=== PATIENT | female | born 2000 | race Caucasian/White ===

== ENCOUNTER 2020-02-10 09:23 | Outpatient (REF) | payer MEDICAID, SELFPAY | END 2020-02-10 09:24 | disposition home or self-care (01) | LOC: HO.LAB 09:23 | PROVIDERS: Visit Provider Internal Medicine | DX: Z20.828 Contact with and (suspected) exposure to other viral communicable diseases (principal) | CPT/HCPCS: 87635 ==

== ENCOUNTER 2020-02-15 09:57 | Emergency (ER) | payer OTHER, SELFPAY ==
[2020-02-15 10:11] VITALS: BP 121/72; PULSE 71; RESP 18; TEMP 36.8; O2SAT 100; BMI 20.3
[2020-02-15] MEDS: 0.9 % Sodium Chloride 1,000 ML 999 ML IVCONT (10:25)
--- NOTE | 2020-02-15 10:32 | ED_ITS ---
HPI - Abdominal Pain General Chief Complaint: Abdominal Pain Stated Complaint: abd pain Source: patient Mode of arrival: ambulatory Limitations: no limitations History of Present Illness HPI narrative: patient presents to ED for diffuse abdominal pain that occurred suddenly an hour ago. Patient denies any recent trauma to the abdomen. Patient states no hematuria, dysuria, flank pain, fever, or chills. MD elicited complaint: abdominal pain Location: diffuse Quality: stabbing Related Data Previous Rx's Medication Instructions Recorded famotidine [Pepcid] 20 mg PO BID #20 tab 02/15/20 Allergies Allergy/AdvReac Type Severity Reaction Status Date / Time Egg/Pro Allergy Unknown Uncoded 04/06/14 00:00 eggs Allergy Unknown Uncoded 09/10/13 00:00 Review of Systems Review of Systems Yes all other systems are reviewed and are negative Eyes: Reports as per HPI and Reports no additional eye complaints Reports system reviewed and no additional complaints, except as documented and Reports as per HPI Cardiovascular: Reports as per HPI and Reports no additional cardiovascular complaints Respiratory: Reports as per HPI and Reports no additional respiratory complaints Gastrointestinal: Reports as per HPI, Reports no additional gastrointestinal complaints, Reports abdominal pain, Denies melena, Denies bloating, Denies hem atochezia, Denies tenesmus, Denies change in stool character, Denies coffee ground emesis, Denies constipation and Denies dyspepsia Reports system reviewed and no additional complaints, except as documented and Reports as per HPI Psychiatric: Reports no additional psychiatric complaints and Reports as per HPI Physical Exam Vital Signs: Vital Signs: Vital Signs Temp Pulse Resp BP Pulse Ox 02/15/20 14:26 55 18 111/59 L 100 02/15/20 10:11 98.2 F 71 18 121/72 100 Body Mass Index 20.3 Const: General: cooperative, healthy appearing, comfortable and no acute distress Orientation/consciousness: patient oriented x3 HENMT: Head: Yes normal to inspection Eyes: General: appearance normal, both eyes and all related structures Neck: Neck: Yes normal visual inspection, Yes full ROM, Yes no lymphadenopathy, Yes no meningeal signs, No positive Brudzinski's sign and No p ositive Kernig's sign Chest: Chest palpation & inspection: normal inspection of the chest and normal palpation of entire chest wall Resp: Effort & Inspection: normal respiratory effort, able to speak in complete sentences, no audible wheezes, no cough, no grunting, not labored, no nasal flaring, no respiratory distress, no stridor and not tachypneic Cardio: Jugular venous distension: no JVD Rhythm: regular rhythm Heart sounds: S1 normal heart sound present and S2 normal heart sound present GI: Inspection: Yes normal to inspection Palpation (GI): Tenderness to palpation present (GI) ( Diffuse tenderness) and Guarding due to palpation present (GI) ( diffuse) : General: No CVA tenderness and Yes no CVA tenderness Back/Spine/Pelvis: Back: no CVA tenderness, No CVA tenderness and No back tenderness Skin: General skin exam: no rashes or lesions noted Neuro: General: patient oriented x3, no meningeal signs and CN's II-XI intact bilaterally Cranial nerves: Yes CN's II-XII intact bilaterally Extrem: General: Yes normal to inspection Course Course Course Narrative: patient abdomen is very tender. Will do labs including to rule out ectopic . If is negative will send patient for CT scan to rule out any surgical etiology. Patient given Pepcid and IV fluids. Once come back negative we will order pain meds. Reevaluation(s) Reevaluation #1: patient no longer has any abdominal pain. CT scan results came back and appendix cannot be visualized. Radiologist recommends appendix ultrasound. Ultrasound ultrasound showed small amount of pelvic free fluid and radiology also recommended pelvic ultrasound. Awaiting results of appendix ultrasound. patient is non-tender and bening on palpation. Time: 14:20 Reevaluation #2: Patient abdomen re-evaluated is nontender and benign on palpation. Ultrasound of abdomen states possible acute appendicitis although very unlikely due to not having inflamattion near appendix and negative for any tenderness or hyperrmia as per ultrasound. Patient presently does not have any abdominal pain. Will call surgeon on-call Time: 15:40 Reevaluation #3: spoke with Dr. Olivo of surgery. She was informed of patient's history, physical exam, and diagnostics including readings of CAT scanned and ultrasound. She states patient could be safely discharged and educated on signs of appendicitis and told to return to ED immediately if she has them. Patient presently does not have any abdominal pain and agrees the plan. Patient states she will come back if symptoms worsen. Time: 15:46 Additional Reevaluation(s): Due to patient's abdominal pain resolving after receiving Pepcid, GERD could be a differential. MDM - Abdominal Pain MDM Narrative Medical decision making narrative: Abdominal pain. GERD. Lab Data Result diagrams: 02/15/20 10:02/15/20 10:23 Labs: Lab Results 02/15/20 02/15/20 02/15/20 Range/Units 10: 10: 10:23 WBC 6.5 (4.8-10.8) X10*3/uL RBC 4.82 (4.20-5.50) X10*6/uL Hgb 13.1 (12.0-16.0) g/dl Hct 40.7 (37-47) % MCV 84.4 (80-98) fL MCH 27.2 (27.0-33.0) pg MCHC 32.2 (31.0-35.0) g/dl RDW 13.2 (11.0-16.0) % Plt Count 315 (160-400) X10*3/uL MPV 10.2 (9.4-12.3) fL Immature Gran % (Auto) 0.2 (0.0-0.4) % Neut % (Auto) 55.3 (45-73) % Lymph % (Auto) 27.4 (20-40) % [place] % (Auto) 7.3 (2-11) % Eos % (Auto) 9.0 H (0-4) % Baso % (Auto) 0.8 (0-2) % Lymph # (Auto) 1.8 (1.2-4.9) X10*3/uL [place] # (Auto) 0.5 (0.1-1.2) X10*3/uL Eos # (Auto) 0.6 H (0.0-0.4) X10*3/uL Baso # (Auto) 0.1 (0.0-0.2) X10*3/uL Abs Immat Gran (auto) 0.01 (0.00-0.03) X10*3/uL Absolute Neuts (auto) 3.6 (2.0-8.3) X10*3/uL Absolute Nucleated RBC 0.000 (0.0-0.012) X10*3/uL Nucleated RBC % (auto) 0.0 (0.0-0.2) /100WBC PT 13.4 H (10.8-13.0) SEC INR 1.1 (0.9-1.1) APTT 34.7 (24.1-38.0) SEC Sodium 140 (135-145) mmol/L Potassium 4.0 (3.3-5.1) mmol/l Chloride 106 (96-108) mmol/L Carbon Dioxide 27 (22-29) mmol/L Anion Gap 11 L (12-20) BUN 10 (9-16) mg/dL Creatinine 0.76 (0.5-1.4) mg/dL Estim Creat Clear Calc 97.2 Estimated GFR > 60 Random Glucose 87 (60-115) mg/dL Calcium 9.8 (8.4-10.2) mg/dL Total Bilirubin 1.0 (0.0-1.0) mg/dL Direct Bilirubin 0.5 (0.0-0.5) mg/dL AST 18 (5-31) U/L ALT 12 (0-31) U/L Alkaline Phosphatase 60 (39-117) U/L Total Protein 7.2 (6.5-8.0) g/dL Albumin 4.7 (3.5-5.0) g/dL Lipase 11 (8-78) U/L Beta HCG, Quant < 2 mIU/mL Urine Color Urine Appearance Urine pH (5.0-8.0) Ur Specific [place] (1.005-1.025) Urine Protein (NEG-TRACE) MG/DL Urine Glucose (UA) (NEG) MG/DL Urine Ketones (NEG) MG/DL Urine Blood (NEG) Urine Nitrite (NEG) Ur Leukocyte Esterase (NEG) 02/15/20 Range/Units 11:23 WBC (4.8-10.8) X10*3/uL RBC (4.20-5.50) X10*6/uL Hgb (12.0-16.0) g/dl Hct (37-47) % MCV (80-98) fL MCH (27.0-33.0) pg MCHC (31.0-35.0) g/dl RDW (11.0-16.0) % Plt Count (160-400) X10*3/uL MPV (9.4-12.3) fL Immature Gran % (Auto) (0.0-0.4) % Neut % (Auto) (45-73) % Lymph % (Auto) (20-40) % [place] % (Auto) (2-11) % Eos % (Auto) (0-4) % Baso % (Auto) (0-2) % Lymph # (Auto) (1.2-4.9) X10*3/uL [place] # (Auto) (0.1-1.2) X10*3/uL Eos # (Auto) (0.0-0.4) X10*3/uL Baso # (Auto) (0.0-0.2) X10*3/uL Abs Immat Gran (auto) (0.00-0.03) X10*3/uL Absolute Neuts (auto) (2.0-8.3) X10*3/uL Absolute Nucleated RBC (0.0-0.012) X10*3/uL Nucleated RBC % (auto) (0.0-0.2) /100WBC PT (10.8-13.0) SEC INR (0.9-1.1) APTT (24.1-38.0) SEC Sodium (135-145) mmol/L Potassium (3.3-5.1) mmol/l Chloride (96-108) mmol/L Carbon Dioxide (22-29) mmol/L Anion Gap (12-20) BUN (9-16) mg/dL Creatinine (0.5-1.4) mg/dL Estim Creat Clear Calc Estimated GFR Random Glucose (60-115) mg/dL Calcium (8.4-10.2) mg/dL Total Bilirubin (0.0-1.0) mg/dL Direct Bilirubin (0.0-0.5) mg/dL AST (5-31) U/L ALT (0-31) U/L Alkaline Phosphatase (39-117) U/L Total Protein (6.5-8.0) g/dL Albumin (3.5-5.0) g/dL Lipase (8-78) U/L Beta HCG, Quant mIU/mL Urine Color YELLOW Urine Appearance CLEAR Urine pH 6.0 (5.0-8.0) Ur Specific [place] 1.020 (1.005-1.025) Urine Protein NEG (NEG-TRACE) MG/DL Urine Glucose (UA) NEG (NEG) MG/DL Urine Ketones NEG (NEG) MG/DL Urine Blood NEG (NEG) Urine Nitrite NEG (NEG) Ur Leukocyte Esterase NEG (NEG) Discharge Plan Discharge Clinical Impression: Abdominal pain Qualifiers: Abdominal location: generalized Qualified Code(s): R10.84 - Generalized abdominal pain GERD (gastroesophageal reflux disease) Qualifiers: Esophagitis presence: without esophagitis Qualified Code(s): K21.9 - Gastro- esophageal reflux disease without esophagitis Patient Disposition: Home, Self-Care Instructions: Gastroesophageal Reflux Disease (ED), Abdominal Pain (ED) Additional Instructions: Return to the ED immediately for worsening abdominal pain, right lower quadrant pain, decreased appetite, nausea, vomiting, flank pain, fever, chills, dysuria, hematuria, vaginal bleeding, vaginal discharge, or any other concerning symptoms. Please follow up with your PCP Prescriptions: New famotidine [Pepcid] 20 mg tablet 20 mg PO BID Qty: 20 RF: 0 Stand Alone Forms: Work/School Release Discharge Date/Time: 02/15/20 16:15 Print Language: Frisian [facility] Past Medical History Medical History Asthma No known health problems Social History Social History Alcohol intake: unknown Smoking Status: Never smoker Use of substances other than those prescribed or required for medical reasons: No Advance Directives: No Advance Directives Information Provided: No
[2020-02-15] MEDS: Famotidine/PF 20 MG/2 ML VIAL IVPUSH (10:36)
[2020-02-15 10:40] LABS: MANUAL DIFF FLAG NO
[2020-02-15 10:48] LABS: Basophils Absolute Auto 0.1 X10*3/uL (0.0-0.2); Basophils Percent Auto 0.8 % (0-2); Eosinophils Absolute Auto 0.6 X10*3/uL (0.0-0.4); Hematocrit 40.7 % (37-47); Hemoglobin 13.1 g/dl (12.0-16.0); Imm Gran Abs Auto 0.01 X10*3/uL (0.00-0.03); Imm Gran Pct Auto 0.2 % (0.0-0.4); Lymphocytes Absolute Auto 1.8 X10*3/uL (1.2-4.9); Lymphocytes Percent Auto 27.4 % (20-40); Mean Corpuscular HGB Conc 32.2 g/dl (31.0-35.0); Mean Corpuscular Hemoglobin 27.2 pg (27.0-33.0); Mean Corpuscular Volume 84.4 fL (80-98); Mean Platelet Volume 10.2 fL (9.4-12.3); Monocytes Absolute Auto 0.5 X10*3/uL (0.1-1.2); Monocytes Percent Auto 7.3 % (2-11); Neutrophils Absolute Auto 3.6 X10*3/uL (2.0-8.3); Neutrophils Percent Auto 55.3 % (45-73); Platelet Count 315 X10*3/uL (160-400); Red Blood Count 4.82 X10*6/uL (4.20-5.50); Red Cell Distribution Width 13.2 % (11.0-16.0); White Blood Count 6.5 X10*3/uL (4.8-10.8)
[2020-02-15 10:52] LABS: INTERNATIONAL NORM RATIO 1.1 (0.9-1.1); Prothrombin Time 13.4 SEC (10.8-13.0)
[2020-02-15 10:54] LABS: Partial Thromboplastin Time 34.7 SEC (24.1-38.0)
[2020-02-15 11:06] LABS: Alanine Aminotransferase 12 U/L (0-31); Albumin Level 4.7 g/dL (3.5-5.0); Alkaline Phosphatase 60 U/L (39-117); Anion Gap 11 (12-20); Aspartate Amino Transferase 18 U/L (5-31); Bilirubin Direct 0.5 mg/dL (0.0-0.5); Blood Urea Nitrogen 10 mg/dL (9-16); Calcium 9.8 mg/dL (8.4-10.2); Carbon Dioxide 27 mmol/L (22-29); Chloride 106 mmol/L (96-108); Creatinine Clr Calc Pharmacy 97.2; Estimated Glomerular Filt Rate > 60; Glucose Random 87 mg/dL (60-115); Lipase 11 U/L (8-78); Sodium 140 mmol/L (135-145); Total Protein 7.2 g/dL (6.5-8.0)
[2020-02-15 11:12] LABS: HCG Quantitative < 2 mIU/mL
--- NOTE | 2020-02-15 11:22 | CT_ITS ---
EXAMINATION: CT ABDOMEN AND PELVIS WITH CONTRAST CLINICAL INFORMATION: Abdominal pain COMPARISON: None TECHNIQUE: Multidetector volumetric images were obtained from the superior aspect of the liver through the pubic symphysis following administration 85 mL of Omnipaque 350 intravenous contrast. Sagittal and coronal reformatted images were obtained on the technologist's workstation. Oral contrast: No This CT examination was performed using dose optimization techniques as appropriate, variously including the following: *Automated exposure control *Adjustment of mA and/or kV according to patient size (this includes techniques or standardized protocols for targeted exams where dose is matched to indication/reason for exam; i.e. extremities or head) *Use of iterative reconstruction technique DLP: 269 mGy-cm FINDINGS: LUNG BASES: The visualized lung bases are unremarkable. No pleural or pericardial effusion. LIVER, GALLBLADDER, AND BILIARY TREE: The liver is normal in size, shape, and attenuation. No focal hepatic lesion or biliary ductal dilatation is present. The gallbladder is unremarkable with no evidence of radiopaque gallstones, gallbladder wall thickening, or obvious pericholecystic inflammatory changes. PANCREAS: Unremarkable. SPLEEN: Unremarkable. ADRENAL GLANDS: Unremarkable. KIDNEYS AND URETERS: The kidneys are normal in size, shape, and attenuation. No hydronephrosis, hydroureter, or calculi seen. No perinephric stranding. BLADDER: Unremarkable. GASTROINTESTINAL TRACT: No dilated loops of large or small bowel are evident. No free abdominal air. There is a small amount of free fluid seen within the pelvis. With lack of intra-abdominal fat the evaluation of bowel loops within the pelvis is difficult with no oral contrast. The appendix is not identified with the cecum lying deep within the pelvis. ABDOMINAL WALL: No significant hernia is appreciated. LYMPH NODES: No lymphadenopathy appreciated. VASCULAR: Unremarkable. PELVIC VISCERA: Limited evaluation. Small amount of free fluid. OSSEOUS STRUCTURES: Unremarkable. IMPRESSION: No evidence of ileus or obstruction. Small amount of free pelvic fluid present with limited evaluation of pelvic structures as described. For better evaluation of the adnexa pelvic ultrasound may be of help. Compression ultrasound of the appendix may be of help as well since the appendix is not definitely identified with the cecum lying deep within the pelvis adjacent to multiple other loops of bowel without intervening fat.
[2020-02-15 11:30] LABS: Glucose Urine UA NEG (NEG); Leukocyte Esterase Urine NEG (NEG); Nitrite Urine NEG (NEG); Urine Blood NEG (NEG); Urine Ketones NEG (NEG); Urine Protein NEG (NEG-TRACE)
[2020-02-15 11:33] LABS: Appearance Urine CLEAR; Color Urine YELLOW
[2020-02-15] MEDS: iohexoL 350 MG/ML 100 ML INFUS..BTL IV (12:14)
--- NOTE | 2020-02-15 12:57 | US_ITS ---
EXAMINATION: US PELVIS COMPLETE US TRANSVAGINAL US PELVIC OVARIAN DOPPLER CLINICAL INFORMATION: Abdominal pain. Evaluate for ovarian torsion or abscess. Patient with Nexplanon, LMP August 2018 COMPARISON: CT abdomen and pelvis of 02/15/2020 TECHNIQUE: Real-time scanning of the pelvis is acquired via transabdominal and transvaginal approach. A dedicated color and spectral Doppler evaluation of the ovaries was obtained. FINDINGS: An anteverted uterus is normal in size measuring 6.3 x 1.8 x 3.3 cm in length, AP and transverse dimensions respectively. Endometrial stripe thickness is 0.3 cm. Myometrial echotexture is homogeneous. No focal uterine mass. The ovaries are normal in appearance containing multiple follicles. Bilateral symmetrical and normal-appearing intraovarian arterial and venous blood flow is documented on spectral Doppler evaluation. Right Ovary: 3.7 x 2.1 x 2.8 cm, volume 11.4 mL Left Ovary: 3.6 x 2.1 x 2.3 cm, volume 9.1 mL Small amount of free fluid is noted in the pelvis and bilateral adnexa. No adnexal mass is noted. IMPRESSION: 1. No sonographic evidence of active ovarian torsion at this time. Normal sonographic appearance of the ovaries. No definite adnexal mass is noted. 2. Small free fluid in the pelvis in the bilateral adnexal region and cul-de-sac, probably physiologic.
--- NOTE | 2020-02-15 12:57 | US_ITS ---
EXAMINATION: RIGHT LOWER QUADRANT COMPRESSION ULTRASOUND STUDY FOR APPENDIX CLINICAL INFORMATION: Abdominal pain. Question appendicitis. COMPARISON: CT scan of February 15, 2020 TECHNIQUE: Right lower quadrant compression ultrasound FINDINGS: Compression ultrasound in the right lower quadrant demonstrates a blind-ending tubular structure that does not peristalse measuring approximately 3.6 cm long and 8 x 7 mm in diameter. There is only limited compressibility to the tubular structure however patient fell no tenderness to palpation overlying the region and there is no free fluid seen around this structure. Doppler evaluation did not demonstrate any hyperemia at all involving this structure. IMPRESSION: Compression ultrasound right lower quadrant demonstrates a blind-ending tubular structure with limited compressibility which if patient was symptomatic could possibly represent acute appendicitis however without adjacent inflammatory change and hyperemia and with patient not having any tenderness to palpation overlying this region this likely does not represent acute appendicitis.
[2020-02-15 14:26] VITALS: BP 111/59; PULSE 55; RESP 18; O2SAT 100
== END 2020-02-15 16:15 | disposition home or self-care (01) ==
PROVIDERS: Physician Assistant; Emergency Provider Emergency Medicine
DX: K21.9 Gastro-esophageal reflux disease without esophagitis (principal)
CPT/HCPCS: 36415; 74177; 76705; 76830; 76856; 80053; 80076; 81003; 82248; 83690; 84702; 85025; 85610; 85730; 93975; 96361; 96374; 99284

== ENCOUNTER 2020-03-04 16:48 | Outpatient (REF) | payer OTHER, SELFPAY | END 2020-03-04 16:49 | disposition home or self-care (01) | LOC: HO.LAB 16:48 | PROVIDERS: Visit Provider Internal Medicine | DX: Z20.828 Contact with and (suspected) exposure to other viral communicable diseases (principal) | CPT/HCPCS: C9803; U0003 ==

== ENCOUNTER → 2020-04-06 12:20 | Outpatient (BNVA) | payer OTHER, SELFPAY | PROVIDERS: Visit Provider Advanced Practice Midwife | DX: Z76.89 Persons encountering health services in other specified circumstances (principal) ==

== ENCOUNTER 2020-04-13 13:13 | Outpatient (REF) | payer OTHER, SELFPAY | END 2020-04-13 13:14 | disposition home or self-care (01) | LOC: HO.LAB 13:13 | PROVIDERS: Visit Provider Internal Medicine | DX: Z20.828 Contact with and (suspected) exposure to other viral communicable diseases (principal) | CPT/HCPCS: C9803; U0003 ==

== ENCOUNTER 2020-04-21 08:59 | Outpatient (REF) | payer OTHER, SELFPAY | END 2020-04-21 09:00 | disposition home or self-care (01) | LOC: HO.LAB 08:59 | PROVIDERS: Visit Provider Internal Medicine | DX: Z20.828 Contact with and (suspected) exposure to other viral communicable diseases (principal) | CPT/HCPCS: C9803; U0003 ==

== ENCOUNTER → 2020-07-07 13:56 | Outpatient (BNVA) | payer OTHER, SELFPAY | PROVIDERS: Visit Provider Advanced Practice Midwife ==

== ENCOUNTER 2020-08-04 14:53 | Outpatient (REF) | payer OTHER, SELFPAY ==
[2020-08-04 16:16] LABS: COVID-19 Test Negative (Negative)
== END 2020-08-04 14:54 | disposition home or self-care (01) ==
LOC: HO.LAB 14:53
PROVIDERS: Visit Provider Internal Medicine
DX: Z20.822 Contact with and (suspected) exposure to COVID-19 (principal)
CPT/HCPCS: 36415; 87635; C9803

== ENCOUNTER 2020-09-28 08:53 | Outpatient (REF) | payer OTHER, SELFPAY ==
[2020-09-28 09:15] LABS: COVID-19 Test Negative (Negative)
== END 2020-09-28 08:54 | disposition home or self-care (01) ==
LOC: HO.LAB 08:53
PROVIDERS: Visit Provider Internal Medicine
DX: Z20.822 Contact with and (suspected) exposure to COVID-19 (principal)
CPT/HCPCS: 36415; 87635; C9803

== ENCOUNTER → 2021-02-14 10:18 | Outpatient (BNVA) | payer OTHER, SELFPAY | PROVIDERS: Visit Provider Advanced Practice Midwife | DX: Z30.46 Encounter for surveillance of implantable subdermal contraceptive (principal); F41.8 Other specified anxiety disorders; Z91.012 Allergy to eggs; Z32.02 Encounter for pregnancy test, result negative | CPT/HCPCS: 11982; 81025 ==

== ENCOUNTER → 2021-03-11 13:43 | Outpatient (BNVA) | payer OTHER, SELFPAY | PROVIDERS: Visit Provider Advanced Practice Midwife | DX: Z30.017 Encounter for initial prescription of implantable subdermal contraceptive (principal) | CPT/HCPCS: 11981; 81025 ==

== ENCOUNTER 2022-05-15 17:43 | Emergency (ER) | payer OTHER, SELFPAY ==
[2022-05-15 17:51] VITALS: BP 139/79; PULSE 79; RESP 18; TEMP 36.9; O2SAT 18; BMI 23.7
--- NOTE | 2022-05-15 17:52 | ECG_ITS ---
Test Reason : CLEARANCE Blood Pressure : / mmHG Vent. Rate : 064 BPM Atrial Rate : 064 BPM P-R Int : 164 ms QRS Dur : 092 ms QT Int : 388 ms P-R-T Axes : 058 085 047 degrees QTc Int : 400 ms Normal sinus rhythm with sinus arrhythmia Incomplete right bundle branch block Borderline ECG No previous ECGs available Referred By: Jose R Katz Electronically Signed By:YAS ALVARADO MD
--- NOTE | 2022-05-15 17:54 | ED.PSYCH ---
HPI - Psych General Chief Complaint: Psychiatric Symptoms <MARY ANNE Dickens - Last Filed: 05/16/22 11:30> Stated Complaint: medically cleared <MARY ANNE Dickens - Last Filed: 05/16/22 11:30> Time Seen by Provider: 05/15/22 18:10 <MARY ANNE Dickens - Last Filed: 05/16/22 11:30> Source: patient <Veramary jane Michelle OLVIN Deluca - Last Filed: 05/16/22 01:04> Mode of arrival: ambulatory <Vera Deluca CNP - Last Filed: 05/16/22 01:04> Limitations: no limitations <Vera Deluca CNP - Last Filed: 05/16/22 01:04> History of Present Illness HPI Narrative: Patient is a 21-year-old female who presents to the emergency department for evaluation of suicidal ideations. She expresses that she has been having increased depression recently. Provides no specific plan. She states that she has not wanted to go to work, has poor appetite, not interested in self hygiene, or interacting with family/ friends. She reports 3 days ago she attempted to overdose on Tylenol, she is not certain how much Tylenol she took, she was not evaluated at the hospital after this. Denies any homicidal ideations. She is currently without any reports of fever, chills, chest pain, shortness of breath, nausea, vomiting, abdominal pain, dysuria, urinary frequency. <Vera Deluca CNP - Last Filed: 05/16/22 01:04> Related Data Home Medications: Home Medications Medication Instructions Recorded Confirmed albuterol sulfate 90 mcg/actuation 1 puff inhalation Q6H PRN wheezing 05/16/22 05/16/22 aerosol inhaler (ProAir HFA) valacyclovir 500 mg tablet 1 tab PO DAILY 05/16/22 05/16/22 <MARY ANNE Dickens - Last Filed: 05/16/22 11:30> Allergies/Adverse Reactions: Allergies Allergy/AdvReac Type Severity Reaction Status Date / Time eggs Allergy Unknown Unknown Uncoded 02/14/21 10:21 <MARY ANNE Dickens Last Filed: 05/16/22 11:30> Review of Systems Review of Systems: Constitutional : No Fever, No Chills ENT/Mouth : No Ear Pain, No Nasal Congestion, No sore throat Eyes: No Eye Pain, No Swelling, No Redness Cardiovascular : No Chest Pain, No SOB Respiratory : No Cough, No Sputum, No Dyspnea Gastrointestinal : No Nausea, No Vomiting, No Diarrhea, No Hematochezia, No Melena Genitourinary : No Dysuria, No Urinary Frequency, No Hematuria Musculoskeletal : No Myalgias Skin : No Skin Lesions, No rash Neuro : No Weakness, No Numbness, No Paresthesias, No Dizziness, No Headache Psych : no Anxiety, positive Depression, positive SI, no HI Heme/Lymph: No Lymphadenopathy Endocrine : No Polyuria, No Polydipsia <Vera Deluca CNP - Last Filed: 05/16/22 01:04> Yes all other systems are reviewed and are negative <Vera Deluca CNP - Last Filed: 05/16/22 01:04> PMFSH Past Medical History Attestation statement: The following information was validated with the patient. <Vera Deluca CNP - Last Filed: 05/16/22 01:04> Source: old records reviewed <Vera Deluca CNP - Last Filed: 05/16/22 01:04> Medical History: Medical History Asthma Depression with anxiety No known health problems <MARY ANNE Dickens - Last Filed: 05/16/22 11:30> Social History Social History: Social History Alcohol intake: unknown Advance Directives: No Advance Directives Information Provided: No Healthcare Proxy: No Guardian: No <MARY ANNE Dickens - Last Filed: 05/16/22 11:30> Physical Exam Vital Signs: Vital Signs: Last Vital Signs Temp 98.7 F 05/16/22 09:40 Pulse 102 H 05/16/22 09:40 Resp 16 05/16/22 09:40 BP 123/67 05/16/22 09:40 Pulse Ox 99 05/16/22 09:40 O2 Del Method 05/16/22 09:40 BMI result Body Mass Index 23.7 <MARY ANNE Dickens - Last Filed: 05/16/22 11:30> Vital Signs: Last Vital Signs Temp 98.7 F 05/16/22 09:40 Pulse 102 H 05/16/22 09:40 Resp 16 05/16/22 09:40 BP 123/67 05/16/22 09:40 Pulse Ox 99 05/16/22 09:40 O2 Del Method 05/16/22 09:40 BMI result Body Mass Index 23.7 <Vera Deluca CNP - Last Filed: 05/16/22 01:04> Vital Signs: Last Vital Signs Temp 98.7 F 05/16/22 09:40 Pulse 102 H 05/16/22 09:40 Resp 16 05/16/22 09:40 BP 123/67 05/16/22 09:40 Pulse Ox 99 05/16/22 09:40 O2 Del Method 05/16/22 09:40 BMI result Body Mass Index 23.7 <Scott Segovia MD - Last Filed: 05/16/22 07:09> Appearance: Alert.?Oriented to person, place and time. No acute distress.?Normal affect. Eyes: Pupils equal, round and reactive to light.? ENT: Pharynx normal.?? Neck: Normal inspection.? Neck supple.?? CVS: Heart sounds normal. Normal heart rate and rhythm.? Pulses normal.?? Respiratory: No respiratory distress.? Lung sounds clear to auscultation bilaterally?? Abdomen: Soft and non-tender. Normoactive bowel sounds. No pulsatile mass.?? Skin: Skin warm and dry.? Normal skin color.? Normal skin turgor.?? Extremities: No lower extremity edema.? No calf ttp? Neuro: Moves all extremities spontaneously. Sensation intact bilaterally. CN II-XII intact. No focal neuro deficits. Ambulates with normal steady gait. <Vera Deluca CNP - Last Filed: 05/16/22 01:04> Course Course Course Narrative: RME: 21 yold female depressed with SI ideation and not interested in washing, eating, or going to work. patient states this past sunday she tried to overdose on tyelnol but did not come to the hospital for evaluation. patient presently has no SI plan. <MARY ANNE Dickens - Last Filed: 05/16/22 11:30> Reevaluation(s) Reevaluation #1: CBC is overall unremarkable. CMP is overall unremarkable, liver function tests are within normal limits. Salicylate and acetaminophen levels within normal limits. Urine toxicology positive for marijuana. Patient was evaluated by care team, patient with multiple changes to her story, reporting SI and denying SI, denying her initially reported overdose attempt on acetaminophen. Recommendations for inpatient bed search, she is placed on a Section 12. patient placed in physician observation, the reason for observation being she requires additional time for inpatient bed search to pursue. She is calm and cooperative, no apparent distress. <Vera Deluca CNP - Last Filed: 05/16/22 01:04> Reevaluation #2: Bed search continue,pt is inpatient level of care ,hemodinamically stable,no event overnight <Scott Segovia MD - Last Filed: 05/16/22 07:09> Time: 07:09 <Scott Segovia MD - Last Filed: 05/16/22 07:09> Medications Administered Discontinued Medications Generic Name Dose Route Start Last Admin Trade Name Freq PRN Reason Stop Dose Admin Lorazepam 2 mg 05/15/22 22:46 05/15/22 22:55 Lorazepam 1 Mg Tablet PO 05/15/22 22:47 2 mg ONCE ONE Administration <MARY ANNE Dickens - Last Filed: 05/16/22 11:30> Medications Administered Discontinued Medications Generic Name Dose Route Start Last Admin Trade Name Freq PRN Reason Stop Dose Admin Lorazepam 2 mg 05/15/22 22:46 05/15/22 22:55 Lorazepam 1 Mg Tablet PO 05/15/22 22:47 2 mg ONCE ONE Administration <Vera Deluca CNP - Last Filed: 05/16/22 01:04> Medications Administered Discontinued Medications Generic Name Dose Route Start Last Admin Trade Name Freq PRN Reason Stop Dose Admin Lorazepam 2 mg 05/15/22 22:46 05/15/22 22:55 Lorazepam 1 Mg Tablet PO 05/15/22 22:47 2 mg ONCE ONE Administration <Scott Segovia MD - Last Filed: 05/16/22 07:09> Medical Decision Making Medical Decision Making MDM Narrative: Patient is a 21-year-old female past medical history of depression presenting to emergency department for evaluation of suicidal ideations. Vague SI without any specific plan. Reports attempted Tylenol overdose 3 days ago, for which she did not seek medical evaluation. Physical examination is benign. Will obtain labs including CBC, CMP, salicylate and acetaminophen level, ethanol level, urinalysis and urine . Patient is currently in the main emergency department, she is on safety checks with 1:1 observation. once medically clear to be referred to the care team for further evaluation, evaluation of whether inpatient psychiatric services would be required. <Vera Deluca CNP - Last Filed: 05/16/22 01:04> Admission/Observation Consideration of admission/observation: Escalation of care including admission/observation considered ( Physician observation as noted in course) <Vera Deluca CNP - Last Filed: 05/16/22 01:04> Lab Data MDM Lab Attestation statement: I reviewed the patient's lab results. <Vera Deluca CNP - Last Filed: 05/16/22 01:04> Result Diagrams: 05/15/22 18:34 05/15/22 18:34 <MARY ANNE Dickens - Last Filed: 05/16/22 11:30> Labs: Lab Results 05/15/22 05/15/22 05/15/22 Range/Units 18:34 18:34 18:34 WBC 9.3 (4.8-10.8) X10*3/uL RBC 4.84 (4.20-5.50) X10*6/uL Hgb 13.0 (12.0-16.0) g/dl Hct 40.5 (37.0-47.0) % MCV 83.7 (80.0-98.0) fL MCH 26.9 L (27.0-33.0) pg MCHC 32.1 (31.0-35.0) g/dl RDW 13.0 (11.0-16.0) % Plt Count 306 (160-400) X10*3/uL MPV 9.6 (9.4-12.3) fL Immature Gran % (Auto) 0.2 (0.0-0.4) % Neut % (Auto) 67.9 (45-73) % Lymph % (Auto) 22.9 (20-40) % Davison % (Auto) 7.7 (2-11) % Eos % (Auto) 0.9 (0-4) % Baso % (Auto) 0.4 (0-2) % Lymph # (Auto) 2.1 (1.2-4.9) X10*3/uL Davison # (Auto) 0.7 (0.1-1.2) X10*3/uL Eos # (Auto) 0.1 (0.0-0.4) X10*3/uL Baso # (Auto) 0.0 (0.0-0.2) X10*3/uL Abs Immat Gran (auto) 0.02 (0.00-0.03) X10*3/uL Absolute Neuts (auto) 6.3 (2.0-8.3) x10*3/uL Absolute Nucleated RBC 0.000 (0.0-0.012) X10*3/uL Nucleated RBC % (auto) 0.0 (0.0-0.2) /100WBC Sodium 138 (135-145) mmol/L Potassium 3.9 (3.3-5.1) mmol/L Chloride 107 (96-108) mmol/L Carbon Dioxide 20 L (22-29) mmol/L Anion Gap 15 (12-20) BUN 8 L (9-16) mg/dL Creatinine 0.83 (0.5-1.4) mg/dL Estim Creat Clear Calc 87.9 Estimated GFR > 60 Random Glucose 100 (60-115) mg/dL Calcium 9.6 (8.4-10.2) mg/dL Total Bilirubin 0.9 (0.0-1.0) mg/dL AST 19 (5-31) U/L ALT 8 (0-31) U/L Alkaline Phosphatase 59 (39-117) U/L Total Protein 7.3 (6.5-8.0) g/dL Albumin 4.6 (3.5-5.0) g/dL Urine Color Urine Appearance Urine pH (5.0-9.0) Ur Specific [place] (1.005-1.025) Urine Protein (Neg-Trace) mg/dL Urine Glucose (UA) (Negative) mg/dL Urine Ketones (Negative) mg/dL Urine Blood (Negative) Urine Nitrite (Negative) Ur Leukocyte Esterase (Negative) Urine Test (NEGATIVE) Salicylates < 5.0 L (15-30) mg/dL Urine Opiates Screen (Not Detect) Urine Fentanyl Screen (Not Detect) Acetaminophen < 17 (<30) mcg/mL Ur Barbiturates Screen (Not Detect) Ur Phencyclidine Scrn (Not Detect) Ur Amphetamines Screen (Not Detect) U Benzodiazepines Scrn (Not Detect) Urine Cocaine Screen (Not Detect) U Marijuana (THC) Screen (Not Detect) Ethyl Alcohol < 10 mg/dL COVID-19 ([facility]) (Negative) COVID-19 Clin Com 05/15/22 05/15/22 05/15/22 Range/Units 19:05 19:05 19:05 WBC (4.8-10.8) X10*3/uL RBC (4.20-5.50) X10*6/uL Hgb (12.0-16.0) g/dl Hct (37.0-47.0) % MCV (80.0-98.0) fL MCH (27.0-33.0) pg MCHC (31.0-35.0) g/dl RDW (11.0-16.0) % Plt Count (160-400) X10*3/uL MPV (9.4-12.3) fL Immature Gran % (Auto) (0.0-0.4) % Neut % (Auto) (45-73) % Lymph % (Auto) (20-40) % Davison % (Auto) (2-11) % Eos % (Auto) (0-4) % Baso % (Auto) (0-2) % Lymph # (Auto) (1.2-4.9) X10*3/uL Davison # (Auto) (0.1-1.2) X10*3/uL Eos # (Auto) (0.0-0.4) X10*3/uL Baso # (Auto) (0.0-0.2) X10*3/uL Abs Immat Gran (auto) (0.00-0.03) X10*3/uL Absolute Neuts (auto) (2.0-8.3) x10*3/uL Absolute Nucleated RBC (0.0-0.012) X10*3/uL Nucleated RBC % (auto) (0.0-0.2) /100WBC Sodium (135-145) mmol/L Potassium (3.3-5.1) mmol/L Chloride (96-108) mmol/L Carbon Dioxide (22-29) mmol/L Anion Gap (12-20) BUN (9-16) mg/dL Creatinine (0.5-1.4) mg/dL Estim Creat Clear Calc Estimated GFR Random Glucose (60-115) mg/dL Calcium (8.4-10.2) mg/dL Total Bilirubin (0.0-1.0) mg/dL AST (5-31) U/L ALT (0-31) U/L Alkaline Phosphatase (39-117) U/L Total Protein (6.5-8.0) g/dL Albumin (3.5-5.0) g/dL Urine Color Yellow Urine Appearance Clear Urine pH 5.5 (5.0-9.0) Ur Specific [place] 1.015 (1.005-1.025) Urine Protein Negative (Neg-Trace) mg/dL Urine Glucose (UA) Negative (Negative) mg/dL Urine Ketones 40 (Negative) mg/dL Urine Blood Negative (Negative) Urine Nitrite Negative (Negative) Ur Leukocyte Esterase Negative (Negative) Urine Test NEGATIVE (NEGATIVE) Salicylates (15-30) mg/dL Urine Opiates Screen Not Detected (Not Detect) Urine Fentanyl Screen Not Detected (Not Detect) Acetaminophen (<30) mcg/mL Ur Barbiturates Screen Not Detected (Not Detect) Ur Phencyclidine Scrn Not Detected (Not Detect) Ur Amphetamines Screen Not Detected (Not Detect) U Benzodiazepines Scrn Not Detected (Not Detect) Urine Cocaine Screen Not Detected (Not Detect) U Marijuana (THC) Screen POSITIVE H (Not Detect) Ethyl Alcohol mg/dL COVID-19 ([facility]IE) (Negative) COVID-19 Clin Com 05/15/22 Range/Units 19:19 WBC (4.8-10.8) X10*3/uL RBC (4.20-5.50) X10*6/uL Hgb (12.0-16.0) g/dl Hct (37.0-47.0) % MCV (80.0-98.0) fL MCH (27.0-33.0) pg MCHC (31.0-35.0) g/dl RDW (11.0-16.0) % Plt Count (160-400) X10*3/uL MPV (9.4-12.3) fL Immature Gran % (Auto) (0.0-0.4) % Neut % (Auto) (45-73) % Lymph % (Auto) (20-40) % Davison % (Auto) (2-11) % Eos % (Auto) (0-4) % Baso % (Auto) (0-2) % Lymph # (Auto) (1.2-4.9) X10*3/uL [place]ison # (Auto) (0.1-1.2) X10*3/uL Eos # (Auto) (0.0-0.4) X10*3/uL Baso # (Auto) (0.0-0.2) X10*3/uL Abs Immat Gran (auto) (0.00-0.03) X10*3/uL Absolute Neuts (auto) (2.0-8.3) x10*3/uL Absolute Nucleated RBC (0.0-0.012) X10*3/uL Nucleated RBC % (auto) (0.0-0.2) /100WBC Sodium (135-145) mmol/L Potassium (3.3-5.1) mmol/L Chloride (96-108) mmol/L Carbon Dioxide (22-29) mmol/L Anion Gap (12-20) BUN (9-16) mg/dL Creatinine (0.5-1.4) mg/dL Estim Creat Clear Calc Estimated GFR Random Glucose (60-115) mg/dL Calcium (8.4-10.2) mg/dL Total Bilirubin (0.0-1.0) mg/dL AST (5-31) U/L ALT (0-31) U/L Alkaline Phosphatase (39-117) U/L Total Protein (6.5-8.0) g/dL Albumin (3.5-5.0) g/dL Urine Color Urine Appearance Urine pH (5.0-9.0) Ur Specific [place] (1.005-1.025) Urine Protein (Neg-Trace) mg/dL Urine Glucose (UA) (Negative) mg/dL Urine Ketones (Negative) mg/dL Urine Blood (Negative) Urine Nitrite (Negative) Ur Leukocyte Esterase (Negative) Urine Test (NEGATIVE) Salicylates (15-30) mg/dL Urine Opiates Screen (Not Detect) Urine Fentanyl Screen (Not Detect) Acetaminophen (<30) mcg/mL Ur Barbiturates Screen (Not Detect) Ur Phencyclidine Scrn (Not Detect) Ur Amphetamines Screen (Not Detect) U Benzodiazepines Scrn (Not Detect) Urine Cocaine Screen (Not Detect) U Marijuana (THC) Screen (Not Detect) Ethyl Alcohol mg/dL COVID-19 ([facility]) Negative (Negative) COVID-19 Clin Com See Note <MARY ANNE Dickens - Last Filed: 05/16/22 11:30> Lab Results 05/15/22 05/15/22 05/15/22 Range/Units 18:34 18:34 18:34 WBC 9.3 (4.8-10.8) X10*3/uL RBC 4.84 (4.20-5.50) X10*6/uL Hgb 13.0 (12.0-16.0) g/dl Hct 40.5 (37.0-47.0) % MCV 83.7 (80.0-98.0) fL MCH 26.9 L (27.0-33.0) pg MCHC 32.1 (31.0-35.0) g/dl RDW 13.0 (11.0-16.0) % Plt Count 306 (160-400) X10*3/uL MPV 9.6 (9.4-12.3) fL Immature Gran % (Auto) 0.2 (0.0-0.4) % Neut % (Auto) 67.9 (45-73) % Lymph % (Auto) 22.9 (20-40) % Davison % (Auto) 7.7 (2-11) % Eos % (Auto) 0.9 (0-4) % Baso % (Auto) 0.4 (0-2) % Lymph # (Auto) 2.1 (1.2-4.9) X10*3/uL Davison # (Auto) 0.7 (0.1-1.2) X10*3/uL Eos # (Auto) 0.1 (0.0-0.4) X10*3/uL Baso # (Auto) 0.0 (0.0-0.2) X10*3/uL Abs Immat Gran (auto) 0.02 (0.00-0.03) X10*3/uL Absolute Neuts (auto) 6.3 (2.0-8.3) x10*3/uL Absolute Nucleated RBC 0.000 (0.0-0.012) X10*3/uL Nucleated RBC % (auto) 0.0 (0.0-0.2) /100WBC Sodium 138 (135-145) mmol/L Potassium 3.9 (3.3-5.1) mmol/L Chloride 107 (96-108) mmol/L Carbon Dioxide 20 L (22-29) mmol/L Anion Gap 15 (12-20) BUN 8 L (9-16) mg/dL Creatinine 0.83 (0.5-1.4) mg/dL Estim Creat Clear Calc 87.9 Estimated GFR > 60 Random Glucose 100 (60-115) mg/dL Calcium 9.6 (8.4-10.2) mg/dL Total Bilirubin 0.9 (0.0-1.0) mg/dL AST 19 (5-31) U/L ALT 8 (0-31) U/L Alkaline Phosphatase 59 (39-117) U/L Total Protein 7.3 (6.5-8.0) g/dL Albumin 4.6 (3.5-5.0) g/dL Urine Color Urine Appearance Urine pH (5.0-9.0) Ur Specific [place] (1.005-1.025) Urine Protein (Neg-Trace) mg/dL Urine Glucose (UA) (Negative) mg/dL Urine Ketones (Negative) mg/dL Urine Blood (Negative) Urine Nitrite (Negative) Ur Leukocyte Esterase (Negative) Urine Test (NEGATIVE) Salicylates < 5.0 L (15-30) mg/dL Urine Opiates Screen (Not Detect) Urine Fentanyl Screen (Not Detect) Acetaminophen < 17 (<30) mcg/mL Ur Barbiturates Screen (Not Detect) Ur Phencyclidine Scrn (Not Detect) Ur Amphetamines Screen (Not Detect) U Benzodiazepines Scrn (Not Detect) Urine Cocaine Screen (Not Detect) U Marijuana (THC) Screen (Not Detect) Ethyl Alcohol < 10 mg/dL COVID-19 ([facility]) (Negative) COVID-19 Clin Com 05/15/22 05/15/22 05/15/22 Range/Units 19:05 19:05 19:05 WBC (4.8-10.8) X10*3/uL RBC (4.20-5.50) X10*6/uL Hgb (12.0-16.0) g/dl Hct (37.0-47.0) % MCV (80.0-98.0) fL MCH (27.0-33.0) pg MCHC (31.0-35.0) g/dl RDW (11.0-16.0) % Plt Count (160-400) X10*3/uL MPV (9.4-12.3) fL Immature Gran % (Auto) (0.0-0.4) % Neut % (Auto) (45-73) % Lymph % (Auto) (20-40) % [place] % (Auto) (2-11) % Eos % (Auto) (0-4) % Baso % (Auto) (0-2) % Lymph # (Auto) (1.2-4.9) X10*3/uL [place] # (Auto) (0.1-1.2) X10*3/uL Eos # (Auto) (0.0-0.4) X10*3/uL Baso # (Auto) (0.0-0.2) X10*3/uL Abs Immat Gran (auto) (0.00-0.03) X10*3/uL Absolute Neuts (auto) (2.0-8.3) x10*3/uL Absolute Nucleated RBC (0.0-0.012) X10*3/uL Nucleated RBC % (auto) (0.0-0.2) /100WBC Sodium (135-145) mmol/L Potassium (3.3-5.1) mmol/L Chloride (96-108) mmol/L Carbon Dioxide (22-29) mmol/L Anion Gap (12-20) BUN (9-16) mg/dL Creatinine (0.5-1.4) mg/dL Estim Creat Clear Calc Estimated GFR Random Glucose (60-115) mg/dL Calcium (8.4-10.2) mg/dL Total Bilirubin (0.0-1.0) mg/dL AST (5-31) U/L ALT (0-31) U/L Alkaline Phosphatase (39-117) U/L Total Protein (6.5-8.0) g/dL Albumin (3.5-5.0) g/dL Urine Color Yellow Urine Appearance Clear Urine pH 5.5 (5.0-9.0) Ur Specific [place] 1.015 (1.005-1.025) Urine Protein Negative (Neg-Trace) mg/dL Urine Glucose (UA) Negative (Negative) mg/dL Urine Ketones 40 (Negative) mg/dL Urine Blood Negative (Negative) Urine Nitrite Negative (Negative) Ur Leukocyte Esterase Negative (Negative) Urine Test NEGATIVE (NEGATIVE) Salicylates (15-30) mg/dL Urine Opiates Screen Not Detected (Not Detect) Urine Fentanyl Screen Not Detected (Not Detect) Acetaminophen (<30) mcg/mL Ur Barbiturates Screen Not Detected (Not Detect) Ur Phencyclidine Scrn Not Detected (Not Detect) Ur Amphetamines Screen Not Detected (Not Detect) U Benzodiazepines Scrn Not Detected (Not Detect) Urine Cocaine Screen Not Detected (Not Detect) U Marijuana (THC) Screen POSITIVE H (Not Detect) Ethyl Alcohol mg/dL COVID-19 ([facility]) (Negative) COVID-19 Clin Com 05/15/22 Range/Units 19:19 WBC (4.8-10.8) X10*3/uL RBC (4.20-5.50) X10*6/uL Hgb (12.0-16.0) g/dl Hct (37.0-47.0) % MCV (80.0-98.0) fL MCH (27.0-33.0) pg MCHC (31.0-35.0) g/dl RDW (11.0-16.0) % Plt Count (160-400) X10*3/uL MPV (9.4-12.3) fL Immature Gran % (Auto) (0.0-0.4) % Neut % (Auto) (45-73) % Lymph % (Auto) (20-40) % Davison % (Auto) (2-11) % Eos % (Auto) (0-4) % Baso % (Auto) (0-2) % Lymph # (Auto) (1.2-4.9) X10*3/uL [place] # (Auto) (0.1-1.2) X10*3/uL Eos # (Auto) (0.0-0.4) X10*3/uL Baso # (Auto) (0.0-0.2) X10*3/uL Abs Immat Gran (auto) (0.00-0.03) X10*3/uL Absolute Neuts (auto) (2.0-8.3) x10*3/uL Absolute Nucleated RBC (0.0-0.012) X10*3/uL Nucleated RBC % (auto) (0.0-0.2) /100WBC Sodium (135-145) mmol/L Potassium (3.3-5.1) mmol/L Chloride (96-108) mmol/L Carbon Dioxide (22-29) mmol/L Anion Gap (12-20) BUN (9-16) mg/dL Creatinine (0.5-1.4) mg/dL Estim Creat Clear Calc Estimated GFR Random Glucose (60-115) mg/dL Calcium (8.4-10.2) mg/dL Total Bilirubin (0.0-1.0) mg/dL AST (5-31) U/L ALT (0-31) U/L Alkaline Phosphatase (39-117) U/L Total Protein (6.5-8.0) g/dL Albumin (3.5-5.0) g/dL Urine Color Urine Appearance Urine pH (5.0-9.0) Ur Specific [place] (1.005-1.025) Urine Protein (Neg-Trace) mg/dL Urine Glucose (UA) (Negative) mg/dL Urine Ketones (Negative) mg/dL Urine Blood (Negative) Urine Nitrite (Negative) Ur Leukocyte Esterase (Negative) Urine Test (NEGATIVE) Salicylates (15-30) mg/dL Urine Opiates Screen (Not Detect) Urine Fentanyl Screen (Not Detect) Acetaminophen (<30) mcg/mL Ur Barbiturates Screen (Not Detect) Ur Phencyclidine Scrn (Not Detect) Ur Amphetamines Screen (Not Detect) U Benzodiazepines Scrn (Not Detect) Urine Cocaine Screen (Not Detect) U Marijuana (THC) Screen (Not Detect) Ethyl Alcohol mg/dL COVID-19 ([facility]) Negative (Negative) COVID-19 Clin Com See Note <Vera Michelle Yosi, INSPECTOR OF [employer]S AND MEASURES - Last Filed: 05/16/22 01:04> Lab Results 05/15/22 05/15/22 05/15/22 Range/Units 18:34 18:34 18:34 WBC 9.3 (4.8-10.8) X10*3/uL RBC 4.84 (4.20-5.50) X10*6/uL Hgb 13.0 (12.0-16.0) g/dl Hct 40.5 (37.0-47.0) % MCV 83.7 (80.0-98.0) fL MCH 26.9 L (27.0-33.0) pg MCHC 32.1 (31.0-35.0) g/dl RDW 13.0 (11.0-16.0) % Plt Count 306 (160-400) X10*3/uL MPV 9.6 (9.4-12.3) fL Immature Gran % (Auto) 0.2 (0.0-0.4) % Neut % (Auto) 67.9 (45-73) % Lymph % (Auto) 22.9 (20-40) % [place] % (Auto) 7.7 (2-11) % Eos % (Auto) 0.9 (0-4) % Baso % (Auto) 0.4 (0-2) % Lymph # (Auto) 2.1 (1.2-4.9) X10*3/uL [place] # (Auto) 0.7 (0.1-1.2) X10*3/uL Eos # (Auto) 0.1 (0.0-0.4) X10*3/uL Baso # (Auto) 0.0 (0.0-0.2) X10*3/uL Abs Immat Gran (auto) 0.02 (0.00-0.03) X10*3/uL Absolute Neuts (auto) 6.3 (2.0-8.3) x10*3/uL Absolute Nucleated RBC 0.000 (0.0-0.012) X10*3/uL Nucleated RBC % (auto) 0.0 (0.0-0.2) /100WBC Sodium 138 (135-145) mmol/L Potassium 3.9 (3.3-5.1) mmol/L Chloride 107 (96-108) mmol/L Carbon Dioxide 20 L (22-29) mmol/L Anion Gap 15 (12-20) BUN 8 L (9-16) mg/dL Creatinine 0.83 (0.5-1.4) mg/dL Estim Creat Clear Calc 87.9 Estimated GFR > 60 Random Glucose 100 (60-115) mg/dL Calcium 9.6 (8.4-10.2) mg/dL Total Bilirubin 0.9 (0.0-1.0) mg/dL AST 19 (5-31) U/L ALT 8 (0-31) U/L Alkaline Phosphatase 59 (39-117) U/L Total Protein 7.3 (6.5-8.0) g/dL Albumin 4.6 (3.5-5.0) g/dL Urine Color Urine Appearance Urine pH (5.0-9.0) Ur Specific [place] (1.005-1.025) Urine Protein (Neg-Trace) mg/dL Urine Glucose (UA) (Negative) mg/dL Urine Ketones (Negative) mg/dL Urine Blood (Negative) Urine Nitrite (Negative) Ur Leukocyte Esterase (Negative) Urine Test (NEGATIVE) Salicylates < 5.0 L (15-30) mg/dL Urine Opiates Screen (Not Detect) Urine Fentanyl Screen (Not Detect) Acetaminophen < 17 (<30) mcg/mL Ur Barbiturates Screen (Not Detect) Ur Phencyclidine Scrn (Not Detect) Ur Amphetamines Screen (Not Detect) U Benzodiazepines Scrn (Not Detect) Urine Cocaine Screen (Not Detect) U Marijuana (THC) Screen (Not Detect) Ethyl Alcohol < 10 mg/dL COVID-19 (LOTTIE) (Negative) COVID-19 Clin Com 05/15/22 05/15/22 05/15/22 Range/Units 19:05 19:05 19:05 WBC (4.8-10.8) X10*3/uL RBC (4.20-5.50) X10*6/uL Hgb (12.0-16.0) g/dl Hct (37.0-47.0) % MCV (80.0-98.0) fL MCH (27.0-33.0) pg MCHC (31.0-35.0) g/dl RDW (11.0-16.0) % Plt Count (160-400) X10*3/uL MPV (9.4-12.3) fL Immature Gran % (Auto) (0.0-0.4) % Neut % (Auto) (45-73) % Lymph % (Auto) (20-40) % Davison % (Auto) (2-11) % Eos % (Auto) (0-4) % Baso % (Auto) (0-2) % Lymph # (Auto) (1.2-4.9) X10*3/uL [place] # (Auto) (0.1-1.2) X10*3/uL Eos # (Auto) (0.0-0.4) X10*3/uL Baso # (Auto) (0.0-0.2) X10*3/uL Abs Immat Gran (auto) (0.00-0.03) X10*3/uL Absolute Neuts (auto) (2.0-8.3) x10*3/uL Absolute Nucleated RBC (0.0-0.012) X10*3/uL Nucleated RBC % (auto) (0.0-0.2) /100WBC Sodium (135-145) mmol/L Potassium (3.3-5.1) mmol/L Chloride (96-108) mmol/L Carbon Dioxide (22-29) mmol/L Anion Gap (12-20) BUN (9-16) mg/dL Creatinine (0.5-1.4) mg/dL Estim Creat Clear Calc Estimated GFR Random Glucose (60-115) mg/dL Calcium (8.4-10.2) mg/dL Total Bilirubin (0.0-1.0) mg/dL AST (5-31) U/L ALT (0-31) U/L Alkaline Phosphatase (39-117) U/L Total Protein (6.5-8.0) g/dL Albumin (3.5-5.0) g/dL Urine Color Yellow Urine Appearance Clear Urine pH 5.5 (5.0-9.0) Ur Specific [place] 1.015 (1.005-1.025) Urine Protein Negative (Neg-Trace) mg/dL Urine Glucose (UA) Negative (Negative) mg/dL Urine Ketones 40 (Negative) mg/dL Urine Blood Negative (Negative) Urine Nitrite Negative (Negative) Ur Leukocyte Esterase Negative (Negative) Urine Test NEGATIVE (NEGATIVE) Salicylates (15-30) mg/dL Urine Opiates Screen Not Detected (Not Detect) Urine Fentanyl Screen Not Detected (Not Detect) Acetaminophen (<30) mcg/mL Ur Barbiturates Screen Not Detected (Not Detect) Ur Phencyclidine Scrn Not Detected (Not Detect) Ur Amphetamines Screen Not Detected (Not Detect) U Benzodiazepines Scrn Not Detected (Not Detect) Urine Cocaine Screen Not Detected (Not Detect) U Marijuana (THC) Screen POSITIVE H (Not Detect) Ethyl Alcohol mg/dL COVID-19 (LOTTIE) (Negative) COVID-19 Clin Com 05/15/22 Range/Units 19:19 WBC (4.8-10.8) X10*3/uL RBC (4.20-5.50) X10*6/uL Hgb (12.0-16.0) g/dl Hct (37.0-47.0) % MCV (80.0-98.0) fL MCH (27.0-33.0) pg MCHC (31.0-35.0) g/dl RDW (11.0-16.0) % Plt Count (160-400) X10*3/uL MPV (9.4-12.3) fL Immature Gran % (Auto) (0.0-0.4) % Neut % (Auto) (45-73) % Lymph % (Auto) (20-40) % Davison % (Auto) (2-11) % Eos % (Auto) (0-4) % Baso % (Auto) (0-2) % Lymph # (Auto) (1.2-4.9) X10*3/uL Davison # (Auto) (0.1-1.2) X10*3/uL Eos # (Auto) (0.0-0.4) X10*3/uL Baso # (Auto) (0.0-0.2) X10*3/uL Abs Immat Gran (auto) (0.00-0.03) X10*3/uL Absolute Neuts (auto) (2.0-8.3) x10*3/uL Absolute Nucleated RBC (0.0-0.012) X10*3/uL Nucleated RBC % (auto) (0.0-0.2) /100WBC Sodium (135-145) mmol/L Potassium (3.3-5.1) mmol/L Chloride (96-108) mmol/L Carbon Dioxide (22-29) mmol/L Anion Gap (12-20) BUN (9-16) mg/dL Creatinine (0.5-1.4) mg/dL Estim Creat Clear Calc Estimated GFR Random Glucose (60-115) mg/dL Calcium (8.4-10.2) mg/dL Total Bilirubin (0.0-1.0) mg/dL AST (5-31) U/L ALT (0-31) U/L Alkaline Phosphatase (39-117) U/L Total Protein (6.5-8.0) g/dL Albumin (3.5-5.0) g/dL Urine Color Urine Appearance Urine pH (5.0-9.0) Ur Specific [place] (1.005-1.025) Urine Protein (Neg-Trace) mg/dL Urine Glucose (UA) (Negative) mg/dL Urine Ketones (Negative) mg/dL Urine Blood (Negative) Urine Nitrite (Negative) Ur Leukocyte Esterase (Negative) Urine Test (NEGATIVE) Salicylates (15-30) mg/dL Urine Opiates Screen (Not Detect) Urine Fentanyl Screen (Not Detect) Acetaminophen (<30) mcg/mL Ur Barbiturates Screen (Not Detect) Ur Phencyclidine Scrn (Not Detect) Ur Amphetamines Screen (Not Detect) U Benzodiazepines Scrn (Not Detect) Urine Cocaine Screen (Not Detect) U Marijuana (THC) Screen (Not Detect) Ethyl Alcohol mg/dL COVID-19 (LOTTIE) Negative (Negative) COVID-19 Clin Com See Note <Scott Segovia MD - Last Filed: 05/16/22 07:09> Discharge Plan Discharge Clinical Impression: Suicidal ideation, Depression <MARY ANNE Dickens - Last Filed: 05/16/22 11:30> Patient Disposition: Still a Patient <MARY ANNE Dickens - Last Filed: 05/16/22 11:30> Prescriptions: No Action valacyclovir 500 mg tablet 1 tab PO DAILY albuterol sulfate [ProAir HFA] 90 mcg/actuation HFA aerosol inhaler 1 puff inhalation Q6H PRN (Reason: wheezing) <MARY ANNE Dickens - Last Filed: 05/16/22 11:30> Interventions: [place]-Suicide Risk Severity Scale Last Done: 05/16/22 06:00 <MARY ANNE Dickens - Last Filed: 05/16/22 11:30>
[2022-05-15 18:23] VITALS: RESP 18; O2SAT 97
[2022-05-15 18:39] LABS: MANUAL DIFF FLAG NO
[2022-05-15 18:40] LABS: Basophils Percent Auto 0.4 % (0-2); Eosinophils Absolute Auto 0.1 X10*3/uL (0.0-0.4); Eosinophils Percent Auto 0.9 % (0-4); Hematocrit 40.5 % (37.0-47.0); Imm Gran Abs Auto 0.02 X10*3/uL (0.00-0.03); Imm Gran Pct Auto 0.2 % (0.0-0.4); Lymphocytes Absolute Auto 2.1 X10*3/uL (1.2-4.9); Lymphocytes Percent Auto 22.9 % (20-40); Mean Corpuscular HGB Conc 32.1 g/dl (31.0-35.0); Mean Corpuscular Hemoglobin 26.9 pg (27.0-33.0); Mean Corpuscular Volume 83.7 fL (80.0-98.0); Mean Platelet Volume 9.6 fL (9.4-12.3); Monocytes Absolute Auto 0.7 X10*3/uL (0.1-1.2); Monocytes Percent Auto 7.7 % (2-11); Neutrophils Absolute Auto 6.3 x10*3/uL (2.0-8.3); Neutrophils Percent Auto 67.9 % (45-73); Platelet Count 306 X10*3/uL (160-400); Red Blood Count 4.84 X10*6/uL (4.20-5.50); White Blood Count 9.3 X10*3/uL (4.8-10.8)
[2022-05-15 18:57] LABS: Acetaminophen LAB < 17 mcg/mL (<30); Alanine Aminotransferase 8 U/L (0-31); Albumin Level 4.6 g/dL (3.5-5.0); Alkaline Phosphatase 59 U/L (39-117); Anion Gap 15 (12-20); Aspartate Amino Transferase 19 U/L (5-31); Bilirubin Total 0.9 mg/dL (0.0-1.0); Blood Urea Nitrogen 8 mg/dL (9-16); Calcium 9.6 mg/dL (8.4-10.2); Carbon Dioxide 20 mmol/L (22-29); Chloride 107 mmol/L (96-108); Creatinine Clr Calc Pharmacy 87.9; Estimated Glomerular Filt Rate > 60; Ethanol < 10 mg/dL; Glucose Random 100 mg/dL (60-115); Potassium 3.9 mmol/L (3.3-5.1); Salicylate < 5.0 mg/dL (15-30); Sodium 138 mmol/L (135-145); Total Protein 7.3 g/dL (6.5-8.0)
[2022-05-15 19:13] LABS: Appearance Urine Clear; Color Urine Yellow; Glucose Urine UA Negative (Negative); Leukocyte Esterase Urine Negative (Negative); Nitrite Urine Negative (Negative); PH 5.5 (5.0-9.0); Specific Gravity - Urine 1.015 (1.005-1.025); Urine Blood Negative (Negative); Urine Ketones 40 mg/dL (Negative); Urine Protein Negative (Neg-Trace)
[2022-05-15 19:17] LABS: UPreg QC Valid YES; Urine Pregnancy NEGATIVE (NEGATIVE)
[2022-05-15 19:22] LABS: Amphetamine Screen Urine Not Detected (Not Detect); Barbiturates, Urine Not Detected (Not Detect); Benzodiazepines Screen Urine Not Detected (Not Detect); Cannabinoid Screen Urine POSITIVE (Not Detect); Cocaine Screen Urine Not Detected (Not Detect); Fentanyl, urine Not Detected (Not Detect); Opiate Screen Urine Not Detected (Not Detect); Phencyclidine Screen Urine Not Detected (Not Detect)
[2022-05-15 19:45] LABS: COVID-19 Test Negative (Negative); IDNOW Serial# 16C4AD1C
--- NOTE | 2022-05-15 22:34 | MHC.CARE ---
CARE Team speaks with pt, mother (on speaker phone calling) and extension service specialist in charge [place]. CARE Team explains sect 12 and disposition for tonight is re-evaluation in the morning. CARE Team explains rationale is that pt disclosed suicide attempt on Sunday via Tylenol overdose, continue reports of SI in ED, inability to safety plan, and increase in depressive symptoms. Mother and pt voice discontent with pt being held on sect 12. This decision was reviewed with Vera Cavazos NP and psych provider Tisha Seay NP.
[2022-05-15] MEDS: LORazepam 1 MG TABLET 2 MG PO (22:55)
--- NOTE | 2022-05-16 03:12 | PC.NURSE ---
Was asked to speak patient regarding plan of care. Pt was unhappy with care team plan. Kelsie and this technical writer and editor went into discuss plan of care. After multiple conversation we were able to calm her down and re-assured her that she would be reassess in am and they will update her with plan of care.
--- NOTE | 2022-05-16 06:11 | PC.NURSE ---
Patient slept through the night, no distress observed/reported, behavior non concerning at this time, patient got extremely agitated when he was made aware of her disposition, Ativan 2 mg PO administered at 2255, disposition per care team is section 12 inpatient bed search, VSS, will continue to monitor.
--- NOTE | 2022-05-16 07:01 | PC.NURSE ---
patient appears to remain asleep at present respirations are even and unlabored patient appears in no distress
--- NOTE | 2022-05-16 08:37 | PHA.MEDREC ---
Pharmacy Consult ? Medication Reconciliation Pharmacy has completed the medication reconciliation. Spoke to patient.
[2022-05-16 09:40] VITALS: BP 123/67; PULSE 102; RESP 16; TEMP 37.1; O2SAT 99
--- NOTE | 2022-05-16 11:15 | MHC.CARE ---
Pt has been referred to [facility] for a counselor and prescriber.
[2022-05-16] MEDS: hydrOXYzine HCL 50 MG TABLET PO (13:03)
--- NOTE | 2022-05-18 19:47 | MHC.CARE ---
CARE Team called pt to check in with her and offer additional support. Pt reports she is feeling much better and will start [facility]CC soon.She is feeling hopeful about treatment and advised to call us if she needs additional support.
== END 2022-05-16 13:07 | disposition home or self-care (01) ==
PROVIDERS: Physician Assistant; Emergency Provider Internal Medicine
DX: R45.851 Suicidal ideations (principal); F32.A Depression, unspecified; Z79.899 Other long term (current) drug therapy; Z20.822 Contact with and (suspected) exposure to COVID-19
CPT/HCPCS: 36415; 80053; 80143; 80179; 80307; 81003; 81025; 82077; 85025; 87635; 93005; 99284; S9485

== ENCOUNTER 2023-02-24 10:49 | Outpatient (AMB) | payer BC, SELFPAY ==
--- NOTE | 2023-02-24 10:56 | MHC.OFFWIV ---
Intake Vital Signs 02/24/23 10:58 Height 5 ft 3 in Weight 127 lb BMI 22.5 BP 92/62 Blood Pressure Location Rt brachial Position Sitting Pulse 82 Pulse Source Pulse Oximeter Temp 98.2 F Temp Source Oral Pulse Oximetry (%) 99 Oxygen Delivery Method Room Air Intake Visit Reasons: EP Nausea, Hot flashes Intake Note: Pt is here today c/o nausea, vomiting and body weakness Is last menstrual period known: Yes Last menstrual period: 02/24/23 Allergies eggs Allergy (Unknown, Uncoded 02/24/23 10:58) Unknown HPI EP Nausea, Hot flashes HPI Details Patient is a 22-year-old female comes to the walk-in clinic complaining of nausea vomiting, generalized fatigue and chills that started yesterday while working. She comes to the clinic after just waking up, and has only some residual fatigue currently. She denies oral intake that would be suspicious for bacterial food-borne illness. She does have history of contact with a child with a diagnosed GI bug recently. She states that there was no blood in her vomit. No diarrhea, current fever chills, myalgias, dizziness, loss of sense of taste or smell, chest pain or chest pressure, shortness of breath or cough, or other respiratory symptoms associated. COUNTS INCLUDE 234 BEDS AT THE [facility] Medical History Depression with anxiety No known health problems Asthma Social History Alcohol intake: unknown Female Reproductive History Menstrual Age of Menarche: 10 Date of last menstrual period: 02/24/23 Review of Systems Const All systems reviewed & are unremarkable except as noted in HPI and below Physical Exam Vital Signs: Last Vital Signs Temp 98.2 F 02/24/23 10:58 Pulse 82 02/24/23 10:58 BP 92/62 02/24/23 10:58 Pulse Ox 99 02/24/23 10:58 Oxygen Delivery Method Room Air 02/24/23 10:58 BMI result Body Mass Index 22.5 Const General: cooperative, healthy appearing, comfortable, no acute distress, alert, awake, Physically active and well groomed; No anxious, diaphoretic, ill appearing, intoxicated appearing, poor hygiene or tired appearing Nutritional Appearance: average body habitus Orientation/consciousness: oriented to person Limitations: no limitations Resp Effort & Inspection: normal respiratory effort, able to speak in complete sentences, no audible wheezes, no cough, no grunting, not labored, no nasal flaring, no retractions and symmetric chest movement Auscultation: clear to auscultation bilaterally, no crackles, no rales, no rhonchi, no wheezes, lung sounds not diminished and No rub present Cardio Palpation: normal PMI Rate: regular rate Rhythm: regular rhythm Heart sounds: S1 normal heart sound present and S2 normal heart sound present GI Inspection: Yes normal to inspection, No Abdominal wall edema and No distended Palpation (GI): Soft to palpation, not firm, nontender, no guarding and No hepatosplenomegaly present Auscultation: normal bowel sounds General: Yes no CVA tenderness Back/Spine/Pelvis Back: no CVA tenderness Skin Other: Good color, warm and dry Neuro General: oriented to person Psych Appearance: grossly normal Mental Status: mental status grossly normal Speech and movement: Normal speech and movement present Affect: normal affect Attitude: cooperative Thought process: Normal thought process present Insight: Good insight present (Psych) Judgement: Good judgement present (Psych) Results AMB Urinalysis, Automated UA Leukoctes 0 Anoop/uL Last Edit by Natalie Goodwin CMA on 02/24/23 11:42 UA Nitrite Negative Last Edit by Natalie Goodwin CMA on 02/24/23 11:42 UA Urobilinogen 0.2 mg/dL Last Edit by Natalie Goodwin CMA on 02/24/23 11:42 UA Protein 15 mg/dL Last Edit by Natalie Goodwin CMA on 02/24/23 11:42 UA pH 6.5 Last Edit by Natalie Goodwin CMA on 02/24/23 11:42 UA Blood 80 Evens/uL Last Edit by Natalie Goodwin CMA on 02/24/23 11:42 UA Specific Chemult 1.015 Last Edit by Natalie Goodwin CMA on 02/24/23 11:42 UA Ketone Negative Last Edit by Natalie Goodwin CMA on 02/24/23 11:42 UA Bilirubin 1 mg/dL Last Edit by Natalie Goodwin CMA on 02/24/23 11:42 UA Glucose 0 mg/dL Last Edit by Natalie Goodwin CMA on 02/24/23 11:42 AMB Test Urine AMB Test Urine Negative Last Edit by Natalie Goodwin CMA on 02/24/23 11:44 Results Reviewed Results Reviewed: Laboratory Last Values Urine pH (Auto) 6.5 02/24/23 11:40 Specific Chemult (Auto) 1.015 02/24/23 11:40 Urine Protein (Auto) 15 mg/dL 02/24/23 11:40 Glucose (UA)(Auto) 0 mg/dL 02/24/23 11:40 Urine Ketones (Auto) Negative 02/24/23 11:40 Urine Blood (Auto) 80 Evens/uL 02/24/23 11:40 Urine Nitrite (Auto) Negative 02/24/23 11:40 Urine Bilirubin (Auto) 1 mg/dL 02/24/23 11:40 Urine Urobilinogen (Auto) 0.2 mg/dL 02/24/23 11:40 Leukocyte Esterase (Auto) 0 Anoop/uL 02/24/23 11:40 Tst Clinic Negative 02/24/23 11:40 Assessment & Plan Assessment & Plan (1) Viral syndrome: Code(s): B34.9 - Viral infection, unspecified Plan: Patient likely with a GI bug, already resolving today. her test was negative, and her urine dip was remarkable only for heme, and she is currently menstruating. We discussed Zofran as needed, and to do a bland diet when tolerated. In the meantime she should stay adequately hydrated and get adequate sleep. I gave her a work note to stay out for few days, up to 5 days pending COVID results. She knows to follow up if symptoms persist or worsen, and to go to the emergency department with worrisome symptoms Orders: Orders AMB Urinalysis Automated Today M54.50 - Low back pain, unspecified SARS-CoV2/FLU/RSV Today R05.9 - Cough, unspecified AMB HCG Urine Test Today R11.0 - Nausea Medications: New ondansetron 4 mg PO TID PRN 14 tabs 0RF nausea and vomiting Coding Level of Care Code Est Pt Level 4 (53358) Diagnoses Viral syndrome B34.9
[2023-02-24 10:58] VITALS: BP 92/62; PULSE 82; TEMP 36.8; O2SAT 99; BMI 22.5
== END 2023-02-24 12:35 | disposition home or self-care (01) ==
PROVIDERS: Visit Provider Physician Assistant Medical
DX: M54.50 Low back pain, unspecified (principal); R11.0 Nausea; B34.9 Viral infection, unspecified
CPT/HCPCS: 81003; 81025; 99214

== ENCOUNTER 2023-02-24 11:38 | Outpatient (REF) | payer BC, SELFPAY ==
[2023-02-24 14:39] LABS: Influenza A PCR NEGATIVE (Negative); Influenza B PCR NEGATIVE (Negative); Resp Syncy Virus RNA Qual PCR NEGATIVE (Negative); SARS COV2 PCR INHOUSE NEGATIVE (Negative)
== END 2023-02-24 11:39 | disposition home or self-care (01) ==
LOC: HO.LAB 11:38
PROVIDERS: Visit Provider Physician Assistant Medical
DX: Z11.52 Encounter for screening for COVID-19 (principal); Z20.822 Contact with and (suspected) exposure to COVID-19; R05.9 Cough, unspecified
CPT/HCPCS: 0241U

== ENCOUNTER 2023-05-30 12:14 | Outpatient (AMB) | payer BC, SELFPAY ==
[2023-05-30 13:00] VITALS: BP 118/70; PULSE 73; TEMP 36.7; O2SAT 98; BMI 22.0
--- NOTE | 2023-05-30 13:00 | MHC.OFFWIV ---
Intake Vital Signs 05/30/23 13:00 Height 5 ft 3 in Weight 124 lb BMI 22.0 BP 118/70 Blood Pressure Location Lt brachial Position Sitting Pulse 73 Pulse Source Pulse Oximeter Temp 98.0 F Temp Source Temporal Artery Scan Pulse Oximetry (%) 98 Oxygen Delivery Method Room Air Intake Visit Reasons: EP burn pain lft shoulder masked in lobby Intake Note: pt is here today for burn pain lft shoulder started 2 weeks ago Patient Tobacco Use Status: Never used Tobacco Is last menstrual period known: Yes Patient : No Allergies eggs Allergy (Unknown, Uncoded 02/24/23 10:58) Unknown Do you need a note to return to daycare/school/sports/work: Yes HPI HPI Comments History of Present Illness Details Patient is a 22yo F who presents to office with L shoulder/back pain She works at the [employer] facility 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 [place] injury to L shoulder blade region after that Did not file report at work Was seen at another and given muscle relaxant, heat/ice, ibuprofen Symptoms improved She went back to daily work but for a few days has a sharp pain intermittent in L shoulder Only with certain L arm movements R hand dominant No medicine for it being taken now Feels better at rest No pain radiation No numbness, tingling or weakness No CP, SOB or URI symptoms PFSH Medical History Depression with anxiety No known health problems Asthma Social History Alcohol intake: unknown Patient Tobacco Use Status: Never used Tobacco Female Reproductive History Menstrual Age of Menarche: 10 Review of Systems Const Denies chills, Denies fatigue and Denies fever(s) ENT Denies otalgia, Denies nasal discharge and Denies sore throat Card Denies chest pain and Denies dyspnea Resp Denies chest congestion, Denies cough and Denies dyspnea GI Denies abdominal pain Musc Reports back pain (L upper back), Denies joint swelling, Denies muscle weakness, Denies numbness and Denies tingling Skin/Breast Denies erythema Neuro Denies numbness and Denies tingling Endo Denies fatigue Physical Exam Vital Signs: Last Vital Signs Temp 98.0 F 05/30/23 13:00 Pulse 73 05/30/23 13:00 BP 118/70 05/30/23 13:00 Pulse Ox 98 05/30/23 13:00 Oxygen Delivery Method Room Air 05/30/23 13:00 BMI result Body Mass Index 22.0 General: Non-toxic, NAD. Speaking full sentences. Skin: Warm dry throughout No rashes or lesions to L shoulder blade/back region Eye: EOMI Neck: No c-spine tenerness Respiratory: CTA bilaterally. No wheezes, rales or rhonchi Cardiac: RRR. No murmur. Raidal pulse intact bilaterally MSK: No midline spinal tenderness. + tenderness to palpation L trapezius muscle near upper thoracic region. +full ROM L shoulder without tenderness to palpation of clavicle, AC joint, bicipital groove or lateral humeral head. Neurology: A/O. No aphasia or facial droop. Gait without abnormality Psych: Good mood and affect Assessment & Plan Assessment & Plan (1) Trapezius muscle spasm: Code(s): M62.838 - Other muscle spasm Plan: Patient seen and evaluated. No midline spinal tenderness Symptoms appear MSK in nature Will advise ibuprofen prn, heat, PT referral F/U with work about report F/U with PCP Patient gave verbal understanding and had no additional questions or concerns at time of discharge All questions answered Orders: Orders PT Evaluation and Treatment Today M62.838 - Other muscle spasm Referrals Physical Medicine and Rehabilitation Referral M62.838 - Other muscle spasm Coding Level of Care Code Est Pt Level 3 (76976) Diagnoses Trapezius muscle spasm M62.838
== END 2023-05-30 13:50 | disposition home or self-care (01) ==
PROVIDERS: Visit Provider Physician Assistant
DX: M62.838 Other muscle spasm (principal)
CPT/HCPCS: 99213